=== PATIENT | female | born 1975 | race African-American/Black ===

== ENCOUNTER 2023-09-17 10:02 | Day surgery (SDC) | payer MEDICAID ==
[~2023-09-17] VITALS: Ht 157.5 cm; Wt 95.3 kg
[2023-09-17] VITALS (9 sets, daily range): BP systolic 100–128; BP diastolic 62–95; PULSE 77–84; RESP 11–20; TEMP 97.7; O2SAT 93–97
[~2023-09-17 10:02] MED LIST: ATE50T PO; ERGO1CAP23 PO; HEPARIN IN NS 1000Units/500mL 1,500 ML ONE; HYDR-4902 PO; IODIXANOL 320MG/ML 100ML BTL IV ONE; LORA-1121 PO; LORA-35 PO; NIFE1TAB36 PO; SILD20TA41 PO
[2023-09-17] MEDS ORDERED: SODIUM CHL 0.9% 0 ML ONE (11:52)
[2023-09-17] MEDS ORDERED: VERAPAMIL 2.5MG/ML INJ 2ML VIAL IV ONE (11:52)
[2023-09-17] MEDS ORDERED: ANGIOMAX 250 MG VIAL IV ONE (11:52)
[2023-09-17] MEDS ORDERED: MIDAZOLAM HCL 2MG/2ML 2ml VIAL (1mg/ml) ONE (11:52)
[2023-09-17] MEDS ORDERED: HEPARIN SODIUM (PORCINE) 5000 UNITS/ML 1ML VIAL ONE (11:52)
[2023-09-17] MEDS ORDERED: fentaNYL CITRATE 100 MCG/2 ML VL ONE (11:52)
[2023-09-17] MEDS ORDERED: LIDOCAINE 2%HCL (LOCAL ANESTH.) INJ 10ml MDV ONE (11:53)
[2023-09-17] MEDS ORDERED: LIDOCAINE 2%HCL (LOCAL ANESTH.) INJ 20ML MDV ONE (11:56)
== END 2023-09-17 15:29 | disposition home or self-care (01) ==
LOC: CATH 10:02
PROVIDERS: ATTEND Internal Medicine
DX: I27.20 Pulmonary hypertension, unspecified (principal); F17.210 Nicotine dependence, cigarettes, uncomplicated; Z79.899 Other long term (current) drug therapy; Z82.49 Family history of ischemic heart disease and other diseases of the circulatory system; Z88.1 Allergy status to other antibiotic agents; Z88.8 Allergy status to other drugs, medicaments and biological substances
CPT/HCPCS: 93460; C1769; C1887; C1894; J1644; J2250; J3010; J7030; Q9967; 99152; 99153; J2001